=== PATIENT | male | born 1970 | race Caucasian/White ===

== ENCOUNTER 2019-06-11 22:02 | Emergency (ER) | payer SELFPAY ==
[~2019-06-11] VITALS: Ht 160 cm; Wt 92.9 kg
[2019-06-11 22:05] VITALS: Ht 160 cm; Wt 92.9 kg
[2019-06-11] MEDS ORDERED: KETOROLAC 60 MG INJ IM STA (22:26)
[2019-06-11] MEDS ORDERED: HYDROCODONE/APAP (10/325) TAB PO ONE (22:30)
--- NOTE | 2019-06-11 23:49 | ERD ---
ER Documentation Chief Complaint Chief Complaint RIGHT SHOULDER INJ S/P [facility] XTODAY; +DEFORMITY NOTED HPI Is a 48-year-old male right shoulder pain status post mechanical fall today. He is able to move his arm but with pain. Denies numbness or tingling. Denies any prior injury to the shoulder. Denies any current issues. ROS All systems reviewed and are negative except as per history of present illness. Medications Home Meds No Active Prescriptions or Reported Meds Allergies Allergies: Coded Allergies: No Known Allergy (Unverified , 06/11/19) PMhx/Soc Medical and Surgical Hx: pt denies Medical Hx, pt denies Surgical Hx Hx Alcohol Use: Yes (SOCIAL) Hx Substance Use: No Hx Tobacco Use: No Smoking Status: Never smoker Physical Exam Vitals Vital Signs Date Temp Pulse Resp B/P (MAP) Pulse Ox O2 O2 Flow FiO2 Time Delivery Rate 06/11/19 96.7 78 19 130/60 98 22:05 (83) Physical Exam Const: No acute distress Head: Atraumatic Eyes: Normal Conjunctiva ENT: Normal External Ears, Nose and Mouth. Neck: Full range of motion. No meningismus. Resp: Clear to auscultation bilaterally Cardio: Regular rate and rhythm, no murmurs Abd: Soft, non tender, non distended. Normal bowel sounds Skin: No petechiae or rashes Back: No midline or flank tenderness Ext: No cyanosis, or edema Neur: Awake and alert Psych: Normal Mood and Affect Results 24 hrs Current Medications Medications Dose Sig/[place] Start Time Status Last (Trade) Ordered Route PRN Stop Time Admin Dose Reason Admin Ketorolac 60 mg ONCE STAT 06/11/19 DC 06/11/19 Tromethamine IM 22:26 22:34 (Toradol) 06/11/19 22:27 1 tab ONCE ONCE 06/11/19 DC 06/11/19 Acetaminophen PO 22:30 22:33 / 06/11/19 22:31 Hydrocodone Bitart ([place] ()) Procedures/MDM X-ray Shoulder 3V Interpreted by me: Bones: [No fracture] Joints: [No dislocation] Foreign body: [None] Medical decision making: Is a 48-year-old male with essentially shoulder contusion. He has no evidence of fracture. Is a pleasant shoulder sling for comfort. He is to follow-up with primary care physician for possible orthopedic follow-up. Departure Diagnosis: Primary Impression: Shoulder injury Encounter type: initial encounter Laterality: right Qualified Codes: S49.91XA - Unspecified injury of right shoulder and upper arm, initial encounter Condition: Stable CONSTANCE TRAN Jun 11, 2019 23:49
[2019-06-11] MEDS ORDERED: TRAM50TA2 PO (23:50)
[2019-06-12 00:37] VITALS: BP 110/68; PULSE 94; RESP 16
== END 2019-06-12 00:39 | disposition home or self-care (01) ==
LOC: E/R 22:02
DX: S40.011A Contusion of right shoulder, initial encounter (principal); W18.39XA Other fall on same level, initial encounter; Y92.9 Unspecified place or not applicable
CPT/HCPCS: 73030; J1885; 96372